=== PATIENT | female | born 1940 | race Caucasian/White ===

== ENCOUNTER 2018-07-25 11:27 | Emergency (ER) | payer MEDICARE, SELFPAY ==
[2018-07-25 11:43] VITALS: BP 134/96; PULSE 100; RESP 13; TEMP 36.4; O2SAT 98
[2018-07-25 11:57] LABS: Bacteria Urine None Seen
[2018-07-25 11:59] LABS: Appearance Urine UA CLEAR; Bilirubin Urine UA NEGATIVE (NEGATIVE); Color Urine UA YELLOW; Glucose Urine UA NEGATIVE (Normal); Ketones Urine UA NEGATIVE (NEGATIVE); Leukocyte Esterase Urine UA NEGATIVE (NEGATIVE); Nitrite Urine UA Negative (Negative); Occult Blood Urine UA NEGATIVE (Negative); Protein Urine UA NEGATIVE (Negative); Urobilinogen Urine UA 0.2 E.U./dL (0.2)
--- NOTE | 2018-07-25 12:10 | PC.NURSE ---
Patient reports four days of cipro, symptoms have improved some. no longer burning but reports urgency still with right flank pain. Patient has noticed the right flank pain for several weeks, UTI symptoms started wednesday.
[2018-07-25 12:15] LABS: Culture Indicated Urine Cult Not Indicated; RBC Urine 0-1/HPF (0-5/HPF); Squamous Epithelial Cell Urine 0-1 /HPF; WBC Urine 1-5/HPF (0-5/HPF)
--- NOTE | 2018-07-25 12:53 | DI.RAD.S_ITS ---
PROCEDURE: XR LUMBAR SPINE 2-3V INDICATIONS: low back pain TECHNIQUE: 3 views of the lumbar spine were acquired. COMPARISON: [facility], , L-SPINE 2-3 VIEWS, 07/01/2015, 18:09. FINDINGS: Bones: 5 [id number] vertebrae are present. There is stable appearing bony alignment, and the previously present L3-L5 with vertical fixation plates and transverse pedicle screws appear stable over time.. No vertebral body compression fractures. No suspicious bony lesions. Mild interval worsening of degenerative disc disease above and below the level of prior operative fusion. Soft tissues: Overlying bowel gas pattern is normal. No suspicious soft tissue calcifications. IMPRESSION: The degenerative disc disease at L2-L3 appears to have mildly worsened from the comparison study in June of 2015, and a similar mild degree of interval worsening of degenerative disc disease at L5-S1 has developed. The fixation plates and transverse pedicle screws remain stable in appearance without evidence of device loosening or disruption. Dictated by: Misha Field M.D. on 07/25/2018 at 14:00 Approved by: Misha Field M.D. on 07/25/2018 at 14:02
--- NOTE | 2018-07-25 12:55 | ED.FEMALEGU ---
HPI - Female Genitourinary <MICHI Diane - Last Filed: 07/25/18 15:52> General Chief complaint: Urogenital-Female Stated complaint: uti Time Seen by Provider: 07/25/18 12:37 Source: patient Mode of arrival: ambulatory Limitations: no limitations History of Present Illness HPI Narrative: Patient presents with chief complaint of UTI symptoms. She complains of urinary urgency frequency hematuria and dysuria that started on Wednesday. She self-medicated with a prescription of Cipro that she had on hand ?just in case.? She states that her UTI symptoms have improved. She complains of suprapubic pressure at the time but states that is much improved since she started taking her antibiotics. She denies any fevers, nausea, vomiting, diarrhea. She complains of right-sided back pain. She states she has a history of back problems and back surgeries. She wanted to make sure she was not developing a kidney infection. She denies any numbness, tingling, incontinence. She denies any vaginal symptoms. Related Data Home Medications Medication Instructions Recorded Confirmed losartan 50 mg PO BID #0 08/19/16 07/25/18 aspirin 81 mg PO QPM 07/25/18 07/25/18 atorvastatin 40 mg PO QPM 07/25/18 07/25/18 fluticasone 1 spray INTRANASAL PRN PRN 07/25/18 07/25/18 hydrochlorothiazide 25 mg PO DAILY 07/25/18 07/25/18 metoprolol tartrate 25 mg PO BID 07/25/18 07/25/18 trazodone 100 mg PO BEDTIME 07/25/18 07/25/18 zolpidem 5 mg PO BEDTIME PRN 07/25/18 07/25/18 Previous Rx's Medication Instructions Recorded naproxen 500 mg PO BID PRN #20 tab 07/25/18 Allergies Allergy/AdvReac Type Severity Reaction Status Date / Time Penicillins [PENICILLINS] Allergy Unknown Unverified 01/26/18 12:56 Review of Systems <MICHI Diane - Last Filed: 07/25/18 15:52> Review of Systems GENERAL: Denies chills, fatigue, malaise, fever, sweats. HEENT: Denies sinus pain, ear pain, sore throat, difficulty swallowing, dizziness. RESPIRATORY: Denies dyspnea, cough, wheezing, hemoptysis, sputum. CARDIOVASCULAR: Denies chest pain, palpitations, orthopnea, edema, GASTROINTESTINAL: Denies nausea, vomiting, abdominal pain, diarrhea, constipation, melena. : See HPI MUSCULOSKELETAL: See HPI SKIN: Denies rash, skin lesions, or other NEUROLOGIC: Denies weakness, headache, numbness, change in speech, confusion, seizures, incoordination. PSYCHIATRIC: No concerning psychosocial issues. 12 point review of systems is negative except for those stated above Exam <Kaykay Castro, PUBLIC HEALTH SPECIALIST-BC - Last Filed: 07/25/18 15:52> Narrative Exam Narrative: GENERAL: This is a well-nourished, well-developed patient, in no acute distress sitting on bed. HEAD: Atraumatic. Normocephalic. No temporal or scalp tenderness. EYES: Pupils equal round and reactive. Extraocular motions intact. No scleral icterus. No injection or drainage. ENT: Nose without bleeding, purulent drainage or septal hematoma. Throat without erythema, tonsillar hypertrophy or exudate. Uvula midline. Airway patent. NECK: Trachea midline. No JVD or lymphadenopathy. Supple, nontender, no meningeal signs. CARDIOVASCULAR: Regular rate and rhythm RESPIRATORY: Clear to auscultation. Breath sounds equal bilaterally. No wheezes, rales, or rhonchi. GASTROINTESTINAL: Abdomen soft, non-tender, nondistended. No hepato-splenomegaly, or palpable masses. No guarding. No suprapubic tenderness to palpation. Active bowel sounds all 4 quadrants. No CVA tenderness bilaterally. EXTREMITIES: No clubbing, cyanosis, or edema. No joint tenderness, effusion, or edema noted. Strength is equal upper and lower extremities bilaterally. BACK: No pain to C-spine or spinal palpation. Patient has pain upon palpation of her lower right paraspinal muscle no lumbar region. Steady gait. NEURO: AOx3. SKIN: No rash or erythema. No rash erythema ecchymosis noted lower back. Initial Vital Signs Initial Vital Signs: Vital Signs Temperature 97.6 F 07/25/18 11:43 Pulse Rate 100 H 07/25/18 11:43 Respiratory Rate 13 07/25/18 11:43 Blood Pressure 134/96 H 07/25/18 11:43 Pulse Oximetry 98 07/25/18 11:43 <DO Alok Bowles Last Filed: 07/26/18 08:03> Initial Vital Signs Initial Vital Signs: Vital Signs Temperature 97.6 F 07/25/18 11:43 Pulse Rate 100 H 07/25/18 11:43 Respiratory Rate 13 07/25/18 11:43 Blood Pressure 134/96 H 07/25/18 11:43 Pulse Oximetry 98 07/25/18 11:43 Course <MICHI Diane - Last Filed: 07/25/18 15:52> Additional Information: I checked on the patient several times throughout her stay in the emergency department. Orders Ordered: ED Orders 07/25/18 11:56 Urinalysis and Microscopic Stat 07/25/18 12:53 XR lumbar spine 2-3V Stat Vital Signs - 8 hr 07/25/18 11:43 07/25/18 12:56 07/25/18 14:42 Temperature 97.6 F Pulse Rate 100 H 105 H 104 H Respiratory Rate 13 18 Blood Pressure 134/96 H 122/82 Blood Pressure [Left Arm] 137/87 Pulse Oximetry 98 95 97 <Tamy Alonso DO - Last Filed: 07/26/18 08:03> Orders Ordered: ED Orders 07/25/18 11:56 Urinalysis and Microscopic Stat 07/25/18 12:53 XR lumbar spine 2-3V Stat Vital Signs - 8 hr 07/25/18 11:43 07/25/18 12:56 07/25/18 14:42 Temperature 97.6 F Pulse Rate 100 H 105 H 104 H Respiratory Rate 13 18 Blood Pressure 134/96 H 122/82 Blood Pressure [Left Arm] 137/87 Pulse Oximetry 98 95 97 MDM - Female Genitourinary <MICHI Diane - Last Filed: 07/25/18 15:52> Lab Data Lab Results 07/25/18 Range/Units 11:56 Urine Color Yellow Urine Appearance Clear Urine pH 7.0 (4.5-8.0) Ur Specific [place] 1.010 (1.000-1.035) Urine Protein Negative (Negative) Urine Glucose (UA) Negative (Normal) g/dL Urine Ketones Negative (NEGATIVE) Urine Occult Blood Negative (Negative) Urine Nitrate Negative (Negative) Urine Bilirubin Negative (NEGATIVE) Urine Urobilinogen 0.2 (0.2) E.U./dL Ur Leukocyte Esterase Negative (NEGATIVE) Urine RBC 0-1/hpf (0-5/HPF) Urine WBC 1-5/hpf (0-5/HPF) Ur Squamous Epith Cells 0-1 /hpf Urine Bacteria None seen (None) Ur Culture Indicated? Cult not indicated Micro UA Comment Not Reportable Imaging Data lumbar xray : Radiologist's impression: [address] [address] XRay Report Signed Patient: Corry Gatyan QMR#: [id number] : 1940Acct:[id number] Age/Sex: 77 / FDate of Service: 07/25/18 Loc: ED Accession Number: [id number] Procedure: XR lumbar spine 2-3V Ordering Provider: Kaykay Castro PUBLIC HEALTH SPECIALIST-BC PROCEDURE: XR LUMBAR SPINE 2-3V INDICATIONS: low back pain TECHNIQUE: 3 views of the lumbar spine were acquired. COMPARISON: [facility], , L-SPINE 2-3 VIEWS, 07/01/2015, 18:09. FINDINGS: Bones: 5 [id number] vertebrae are present. There is stable appearing bony alignment, and the previously present L3-L5 with vertical fixation plates and transverse pedicle screws appear stable over time.. No vertebral body compression fractures. No suspicious bony lesions. Mild interval worsening of degenerative disc disease above and below the level of prior operative fusion. Soft tissues: Overlying bowel gas pattern is normal. No suspicious soft tissue calcifications. IMPRESSION: The degenerative disc disease at L2-L3 appears to have mildly worsened from the comparison study in June of 2015, and a similar mild degree of interval worsening of degenerative disc disease at L5-S1 has developed. The fixation plates and transverse pedicle screws remain stable in appearance without evidence of device loosening or disruption. Dictated by: Misha Field M.D. on 07/25/2018 at 14:00 Approved by: Misha Field M.D. on 07/25/2018 at 14:02 [facility] Narrative Medical decision making narrative: Patient presents with chief complaint of UTI symptoms and back pain. She has been treating herself with Cipro and states her UTI symptoms are much improved. She does not have any signs of infection on urinalysis. She plans on finishing her Cipro. She wanted to make sure that she was not having a kidney infection given her back pain. However her back pain is not in her CVA area. She has no signs of systemic symptoms as well as stable vital signs and no evidence of fever. We discussed conservative measures for the time being given her back pain and she plans upon up with primary care provider for worsening or no improvement. I discussed at length return precautions the emergency department and she had no questions or concerns upon discharge. <Tamy Alonso, DO - Last Filed: 07/26/18 08:03> Lab Data Lab Results 07/25/18 Range/Units 11:56 Urine Color Yellow Urine Appearance Clear Urine pH 7.0 (4.5-8.0) Ur Specific [place] 1.010 (1.000-1.035) Urine Protein Negative (Negative) Urine Glucose (UA) Negative (Normal) g/dL Urine Ketones Negative (NEGATIVE) Urine Occult Blood Negative (Negative) Urine Nitrate Negative (Negative) Urine Bilirubin Negative (NEGATIVE) Urine Urobilinogen 0.2 (0.2) E.U./dL Ur Leukocyte Esterase Negative (NEGATIVE) Urine RBC 0-1/hpf (0-5/HPF) Urine WBC 1-5/hpf (0-5/HPF) Ur Squamous Epith Cells 0-1 /hpf Urine Bacteria None seen (None) Ur Culture Indicated? Cult not indicated Micro UA Comment Not Reportable Discharge Plan Departure Patient Disposition: Home Clinical Impression: Back pain, Dysuria Discharge Date/Time: 07/25/18 14:43 Interventions: ED Discharge Assessment Last Done: 07/25/18 14:42 Instructions: Back Pain (Alternative Therapy), Low Back Pain, DI for Low Back Pain, DI for Urinary Tract Infection (UTI) Activity Restrictions/Additional Instructions: I have printed out a copy of your x-ray results for you to see. I have given you a prescription of naproxen to take twice a day for the pain. Please do not combine it with any other NSAIDs such as ibuprofen. Your urine sample came back negative for any signs of infection here in the emergency department. Please follow-up with primary care provider as discussed. Please come back to emergency department for any acute concerns such as stroke, heart attack or neurological changes. Prescriptions: New naproxen 500 mg tablet 500 mg PO BID PRN (Reason: pain) Qty: 20 RF: 0 No Action losartan 50 MG tablet 50 mg PO BID Qty: 0 RF: 0 atorvastatin 80 mg tablet 40 mg PO QPM RF: 0 trazodone 100 mg tablet 100 mg PO BEDTIME RF: 0 hydrochlorothiazide 25 mg tablet 25 mg PO DAILY RF: 0 zolpidem 10 mg tablet 5 mg PO BEDTIME PRN (Reason: Sleep) RF: 0 fluticasone 50 mcg/actuation spray,suspension 1 spray Intranasal PRN PRN (Reason: Allergy Symptoms) RF: 0 metoprolol tartrate 25 mg tablet 25 mg PO BID RF: 0 aspirin 81 MG tablet,delayed release (DR/EC) 81 mg PO QPM RF: 0 Referrals: Becky Webb DO [Primary Care Provider] - <Tamy Alonso DO - Last Filed: 07/26/18 08:03> Cosign ED Attending Francy Attestation: I was immediately available in the department for consultation. Documentation has been reviewed. I agree with assessment and plan.
[2018-07-25 12:56] VITALS: BP 137/87; PULSE 105; O2SAT 95
--- NOTE | 2018-07-25 12:58 | ED_ITS ---
HPI - Female Genitourinary <MICHI Diane - Last Filed: 07/25/18 15:52> General Chief complaint: Urogenital-Female Stated complaint: uti Time Seen by Provider: 07/25/18 12:37 Source: patient Mode of arrival: ambulatory Limitations: no limitations History of Present Illness HPI Narrative: Patient presents with chief complaint of UTI symptoms. She complains of urinary urgency frequency hematuria and dysuria that started on Wednesday. She self-medicated with a prescription of Cipro that she had on hand ? just in case.? She states that her UTI symptoms have improved. She complains of suprapubic pressure at the time but states that is much improved since she started taking her antibiotics. She denies any fevers, nausea, vomiting, diarrhea. She complains of right-sided back pain. She states she has a history of back problems and back surgeries. She wanted to make sure she was not developing a kidney infection. She denies any numbness, tingling, incontinence. She denies any vaginal symptoms. Related Data Home Medications Medication Instructions Recorded Confirmed losartan 50 mg PO BID #0 08/19/16 07/25/18 aspirin 81 mg PO QPM 07/25/18 07/25/18 atorvastatin 40 mg PO QPM 07/25/18 07/25/18 fluticasone 1 spray INTRANASAL PRN PRN 07/25/18 07/25/18 hydrochlorothiazide 25 mg PO DAILY 07/25/18 07/25/18 metoprolol tartrate 25 mg PO BID 07/25/18 07/25/18 trazodone 100 mg PO BEDTIME 07/25/18 07/25/18 zolpidem 5 mg PO BEDTIME PRN 07/25/18 07/25/18 Previous Rx's Medication Instructions Recorded naproxen 500 mg PO BID PRN #20 tab 07/25/18 Allergies Allergy/AdvReac Type Severity Reaction Status Date / Time Penicillins [PENICILLINS] Allergy Unknown Unverified 01/26/18 12:56 Review of Systems <MICHI Diane - Last Filed: 07/25/18 15:52> Review of Systems GENERAL: Denies chills, fatigue, malaise, fever, sweats. HEENT: Denies sinus pain, ear pain, sore throat, difficulty swallowing, dizziness. RESPIRATORY: Denies dyspnea, cough, wheezing, hemoptysis, sputum. CARDIOVASCULAR: Denies chest pain, palpitations, orthopnea, edema, GASTROINTESTINAL: Denies nausea, vomiting, abdominal pain, diarrhea, constipation, melena. : See HPI MUSCULOSKELETAL: See HPI SKIN: Denies rash, skin lesions, or other NEUROLOGIC: Denies weakness, headache, numbness, change in speech, confusion, seizures, incoordination. PSYCHIATRIC: No concerning psychosocial issues. 12 point review of systems is negative except for those stated above Exam <Kaykay Castro, SUPERVISOR BUILDING MAINTENANCE-BC - Last Filed: 07/25/18 15:52> Narrative Exam Narrative: GENERAL: This is a well-nourished, well-developed patient, in no acute distress sitting on bed. HEAD: Atraumatic. Normocephalic. No temporal or scalp tenderness. EYES: Pupils equal round and reactive. Extraocular motions intact. No scleral icterus. No injection or drainage. ENT: Nose without bleeding, purulent drainage or septal hematoma. Throat without erythema, tonsillar hypertrophy or exudate. Uvula midline. Airway patent. NECK: Trachea midline. No JVD or lymphadenopathy. Supple, nontender, no meningeal signs. CARDIOVASCULAR: Regular rate and rhythm RESPIRATORY: Clear to auscultation. Breath sounds equal bilaterally. No wheezes , rales, or rhonchi. GASTROINTESTINAL: Abdomen soft, non-tender, nondistended. No hepato-splenomegaly , or palpable masses. No guarding. No suprapubic tenderness to palpation. Active bowel sounds all 4 quadrants. No CVA tenderness bilaterally. EXTREMITIES: No clubbing, cyanosis, or edema. No joint tenderness, effusion, or edema noted. Strength is equal upper and lower extremities bilaterally. BACK: No pain to C-spine or spinal palpation. Patient has pain upon palpation of her lower right paraspinal muscle no lumbar region. Steady gait. NEURO: AOx3. SKIN: No rash or erythema. No rash erythema ecchymosis noted lower back. Initial Vital Signs Initial Vital Signs: Vital Signs Temperature 97.6 F 07/25/18 11:43 Pulse Rate 100 H 07/25/18 11:43 Respiratory Rate 13 07/25/18 11:43 Blood Pressure 134/96 H 07/25/18 11:43 Pulse Oximetry 98 07/25/18 11:43 <DO Alok Bowles Last Filed: 07/26/18 08:03> Initial Vital Signs Initial Vital Signs: Vital Signs Temperature 97.6 F 07/25/18 11:43 Pulse Rate 100 H 07/25/18 11:43 Respiratory Rate 13 07/25/18 11:43 Blood Pressure 134/96 H 07/25/18 11:43 Pulse Oximetry 98 07/25/18 11:43 Course <MICHI Diane - Last Filed: 07/25/18 15:52> Additional Information: I checked on the patient several times throughout her stay in the emergency department. Orders Ordered: ED Orders 07/25/18 11:56 Urinalysis and Microscopic Stat 07/25/18 12:53 XR lumbar spine 2-3V Stat Vital Signs - 8 hr 07/25/18 11:43 07/25/18 12:56 07/25/18 14:42 Temperature 97.6 F Pulse Rate 100 H 105 H 104 H Respiratory Rate 13 18 Blood Pressure 134/96 H 122/82 Blood Pressure [Left Arm] 137/87 Pulse Oximetry 98 95 97 <Tamy Alonso DO - Last Filed: 07/26/18 08:03> Orders Ordered: ED Orders 07/25/18 11:56 Urinalysis and Microscopic Stat 07/25/18 12:53 XR lumbar spine 2-3V Stat Vital Signs - 8 hr 07/25/18 11:43 07/25/18 12:56 07/25/18 14:42 Temperature 97.6 F Pulse Rate 100 H 105 H 104 H Respiratory Rate 13 18 Blood Pressure 134/96 H 122/82 Blood Pressure [Left Arm] 137/87 Pulse Oximetry 98 95 97 MDM - Female Genitourinary <MCIHI Diane - Last Filed: 07/25/18 15:52> Lab Data Lab Results 07/25/18 Range/Units 11:56 Urine Color Yellow Urine Appearance Clear Urine pH 7.0 (4.5-8.0) Ur Specific [place] 1.010 (1.000-1.035) Urine Protein Negative (Negative) Urine Glucose (UA) Negative (Normal) g/dL Urine Ketones Negative (NEGATIVE) Urine Occult Blood Negative (Negative) Urine Nitrate Negative (Negative) Urine Bilirubin Negative (NEGATIVE) Urine Urobilinogen 0.2 (0.2) E.U./dL Ur Leukocyte Esterase Negative (NEGATIVE) Urine RBC 0-1/hpf (0-5/HPF) Urine WBC 1-5/hpf (0-5/HPF) Ur Squamous Epith Cells 0-1 /hpf Urine Bacteria None seen (None) Ur Culture Indicated? Cult not indicated Micro UA Comment Not Reportable Imaging Data lumbar xray : Radiologist's impression: [address] [address] XRay Report Signed Patient: Corry Gaytan QMR#: [id number] : 1940Acct:[id number] Age/Sex: 77 / FDate of Service: 07/25/18 Loc: ED Accession Number: [id number] Procedure: XR lumbar spine 2-3V Ordering Provider: Kaykay Castro SUPERVISOR BUILDING MAINTENANCE-BC PROCEDURE: XR LUMBAR SPINE 2-3V INDICATIONS: low back pain TECHNIQUE: 3 views of the lumbar spine were acquired. COMPARISON: [facility], , L-SPINE 2-3 VIEWS, 07/01/2015, 18:09. FINDINGS: Bones: 5 [id number] vertebrae are present. There is stable appearing bony alignment, and the previously present L3-L5 with vertical fixation plates and transverse pedicle screws appear stable over time.. No vertebral body compression fractures. No suspicious bony lesions. Mild interval worsening of degenerative disc disease above and below the level of prior operative fusion. Soft tissues: Overlying bowel gas pattern is normal. No suspicious soft tissue calcifications. IMPRESSION: The degenerative disc disease at L2-L3 appears to have mildly worsened from the comparison study in June of 2015, and a similar mild degree of interval worsening of degenerative disc disease at L5-S1 has developed. The fixation plates and transverse pedicle screws remain stable in appearance without evidence of device loosening or disruption. Dictated by: Misha Field M.D. on 07/25/2018 at 14:00 Approved by: Misha Field M.D. on 07/25/2018 at 14:02 [facility] Narrative Medical decision making narrative: Patient presents with chief complaint of UTI symptoms and back pain. She has been treating herself with Cipro and states her UTI symptoms are much improved. She does not have any signs of infection on urinalysis. She plans on finishing her Cipro. She wanted to make sure that she was not having a kidney infection given her back pain. However her back pain is not in her CVA area. She has no signs of systemic symptoms as well as stable vital signs and no evidence of fever. We discussed conservative measures for the time being given her back pain and she plans upon up with primary care provider for worsening or no improvement. I discussed at length return precautions the emergency department and she had no questions or concerns upon discharge. <Tamy Alonso, DO - Last Filed: 07/26/18 08:03> Lab Data Lab Results 07/25/18 Range/Units 11:56 Urine Color Yellow Urine Appearance Clear Urine pH 7.0 (4.5-8.0) Ur Specific [place] 1.010 (1.000-1.035) Urine Protein Negative (Negative) Urine Glucose (UA) Negative (Normal) g/dL Urine Ketones Negative (NEGATIVE) Urine Occult Blood Negative (Negative) Urine Nitrate Negative (Negative) Urine Bilirubin Negative (NEGATIVE) Urine Urobilinogen 0.2 (0.2) E.U./dL Ur Leukocyte Esterase Negative (NEGATIVE) Urine RBC 0-1/hpf (0-5/HPF) Urine WBC 1-5/hpf (0-5/HPF) Ur Squamous Epith Cells 0-1 /hpf Urine Bacteria None seen (None) Ur Culture Indicated? Cult not indicated Micro UA Comment Not Reportable Discharge Plan Departure Patient Disposition: Home Clinical Impression: Back pain, Dysuria Discharge Date/Time: 07/25/18 14:43 Interventions: ED Discharge Assessment Last Done: 07/25/18 14:42 Instructions: Back Pain (Alternative Therapy), Low Back Pain, DI for Low Back Pain, DI for Urinary Tract Infection (UTI) Activity Restrictions/Additional Instructions: I have printed out a copy of your x-ray results for you to see. I have given you a prescription of naproxen to take twice a day for the pain. Please do not combine it with any other NSAIDs such as ibuprofen. Your urine sample came back negative for any signs of infection here in the emergency department. Please follow-up with primary care provider as discussed. Please come back to emergency department for any acute concerns such as stroke, heart attack or neurological changes. Prescriptions: New naproxen 500 mg tablet 500 mg PO BID PRN (Reason: pain) Qty: 20 RF: 0 No Action losartan 50 MG tablet 50 mg PO BID Qty: 0 RF: 0 atorvastatin 80 mg tablet 40 mg PO QPM RF: 0 trazodone 100 mg tablet 100 mg PO BEDTIME RF: 0 hydrochlorothiazide 25 mg tablet 25 mg PO DAILY RF: 0 zolpidem 10 mg tablet 5 mg PO BEDTIME PRN (Reason: Sleep) RF: 0 fluticasone 50 mcg/actuation spray,suspension 1 spray Intranasal PRN PRN (Reason: Allergy Symptoms) RF: 0 metoprolol tartrate 25 mg tablet 25 mg PO BID RF: 0 aspirin 81 MG tablet,delayed release (DR/EC) 81 mg PO QPM RF: 0 Referrals: Becky Webb DO [Primary Care Provider] - <Tamy Alonso DO - Last Filed: 07/26/18 08:03> Cosign ED Attending Francy Attestation: I was immediately available in the department for consultation. Documentation has been reviewed. I agree with assessment and plan.
[2018-07-25 14:42] VITALS: BP 122/82; PULSE 104; RESP 18; O2SAT 97
--- NOTE | 2018-07-28 16:23 | PC.NURSE ---
follow up with call, n/a
== END 2018-07-25 14:43 | disposition home or self-care (01) ==
PROVIDERS: Emergency Provider Nurse Practitioner Family; Family Provider Internal Medicine; PCP Internal Medicine
DX: M54.9 Dorsalgia, unspecified (principal); R30.0 Dysuria
CPT/HCPCS: 72100; 81001; 99282; 99284

== ENCOUNTER → 2019-11-09 14:09 | Outpatient (CLI) | payer MEDICARE, SELFPAY | PROVIDERS: Family Provider Internal Medicine; PCP Internal Medicine; Visit Provider Physician Assistant | DX: N30.00 Acute cystitis without hematuria (principal) | CPT/HCPCS: 87077; 87086; 87186 ==

== ENCOUNTER → 2023-01-11 09:14 | Outpatient (CLI) | payer MEDICARE, SELFPAY ==
--- NOTE | 2023-01-11 09:19 | DI.RAD.S_ITS ---
PROCEDURE: XR LUMBAR SPINE MIN 4V INDICATIONS: BACK PAIN TECHNIQUE: 5 views of the lumbar spine acquired, including flexion and extension views. COMPARISON: [facility], , XR LUMBAR SPINE 2-3V, 07/25/2018, 13:14. FINDINGS: Bones: 5 nonrib-bearing vertebrae are present. Mild levo curvature centered at the L2-L3 level. Posterior fixation hardware at the L3-L4 and L4-L5 levels which appears similar prior examination. Multilevel disc height loss with endplate sclerosis and spurring, severe at the L2-L3 and L5-S1 levels. Lower lumbar spine facet joint arthropathy.. No vertebral body compression fractures. No suspicious bony lesions. Soft tissues: Overlying bowel gas pattern is normal. No suspicious soft tissue calcifications. Vascular calcifications indicate atherosclerosis. IMPRESSION: 1. Posterior fixation hardware again seen at the L3-L4 and L4-L5 levels. 2. Multilevel lumbar spine spondylosis similar prior examination dated 07/25/2018. Dictated by: Devyn LIM Interpreted: Bebo Thompson MD on 01/11/2023 at 9:54 Transcribed by: JOSÉ on 01/11/2023 at 9:56 Approved by: Damian Thompson M.D. on 01/11/2023 at 12:37
== END ==
PROVIDERS: Family Provider Internal Medicine; PCP Internal Medicine; Referring Provider Physical Medicine & Rehabilitation; Visit Provider Physical Medicine & Rehabilitation
DX: M47.816 Spondylosis without myelopathy or radiculopathy, lumbar region (principal); M48.062 Spinal stenosis, lumbar region with neurogenic claudication; M54.9 Dorsalgia, unspecified; G25.81 Restless legs syndrome; Z95.0 Presence of cardiac pacemaker; Z98.1 Arthrodesis status; Z98.890 Other specified postprocedural states
CPT/HCPCS: 72110; 99214

== ENCOUNTER 2023-05-18 09:56 | Outpatient (CLI) | payer MEDICARE, SELFPAY ==
[2023-05-18] VITALS (7 sets, daily range): BP systolic 106–160; BP diastolic 60–74; PULSE 60–82; RESP 18–26; TEMP 36.4; O2SAT 91–100
--- NOTE | 2023-05-18 09:58 | DI.RAD.S_ITS ---
PROCEDURE: PAIN L INTERLAMINAR/CAUDAL INJ INDICATIONS: SPONDYLOSIS COMPARISON: [facility], [place]ONY, XR LUMBAR SPINE MIN 4V, 01/11/2023, 9:29. [place], RG, CT LUMBAR SPINE, 11/12/2020, 11:16. FINDINGS: Fluoroscopic spot filming was performed to verify placement of a spinal needle at the L2-L3 level, as labeled on the films. Appropriate location of the needle tip was confirmed by injection of iodinated contrast. IMPRESSION: Intraprocedural examination within normal limits. Dictated by: Jimi Cannon M.D. on 05/18/2023 at 10:28 Approved by: Jimi Cannon M.D. on 05/18/2023 at 10:28
[2023-05-18] MEDS: MIDAZOLAM 2 MG/2 ML VIAL IV (10:45)
[2023-05-18] MEDS: IOPAMIDOL 15 ML VIAL 3 ML INJ (10:50)
[2023-05-18] MEDS: BETAMETHASONE 30 MG/5 ML MDV 6 MG INJ (10:51)
[2023-05-18] MEDS: DEXAMETHASONE 10 MG/ML VIAL INJ (10:51)
--- NOTE | 2023-05-18 11:04 | PM.PROC.IR.1 ---
Date/Time/Diagnoses Date of procedure: 05/18/23 Time of procedure: 11:04 Pre-procedure diagnosis: 1. HNP WITH RADICULAR FEATURES, 2. MULTILEVEL CENTRAL STENOSIS, Post-procedure diagnosis: same Procedure Notes Procedure: 1. FLUOROSCOPICALLY GUIDED CONTRAST CONTROLLED INTERLAMINAR EPIDURAL STEROID INJECTION - L2/3 Indications: Corry is referred by Dr. Martinez for treatment of Bilateral Foraminal Stenosis L>R LE symptoms. Physician: Nando Deras Total Fluoroscopy time (seconds): 11 Total sedation minutes: 13 Complications: none Procedure in detail & Post-procedure care: FINDINGS Multilevel Central Spinal Stenosis with Nerve Root Compression DESCRIPTION OF PROCEDURE Fluoroscopically guided, contrast-controlled L2/3 translaminar epidural steroid injection. Following review of allergy and review of potential side effects and complications, including, but not necessarily limited to, infection, allergic reaction, local tissue breakdown, temporary as well as permanent nerve injury, paralysis, stroke and possible , the patient indicated that the patient understood and agreed to proceed. An informed consent document was signed by the patient, witnessed by a nurse, and placed in the patient's chart. Additionally, other treatment options including modalities, medications, and physical therapy were reviewed with the patient. After review of previous anaesthesic history and IV conscious sedation the patient was deemed safe to proceed with today?s procedure with IV conscious sedation as ASA class II designation. Safety time-out was performed to confirm patient ID, procedure to be performed and site of procedure. IV sedation was accomplished with a combination administered by the RN after DO order, titrated to patient comfort during the course of the procedure while the patient remained responsive to all verbal commands. In the prone position, following sterile prep and drape of the lumbar region,the L2/3 translaminar space was identified fluoroscopically. The skin was anesthetized via a 25-gauge, 1.5-inch needle with 1% lidocaine solution. At this point, a 22-gauge short bevel spinal needle was atraumatically introduced and advanced under fluoroscopic guidance into the region of the L2/3 translaminar space. Depth was confirmed on lateral view. Radiological data, including multiple fluoroscopic views of the lumbar spine, reveal a spinal needle at the L2/3 translaminar space. Lateral views then show placement of the needle in the epidural space. Subsequent views show contrast material flowing superiorly and inferiorly in the epidural space. No vascular or intrathecal uptake is observed. At this point, using loss of resistance technique with saline and air, the epidural space was entered. This was confirmed following negative aspiration with injection of approximately 1.5 cc of Isovue 200, showing excellent epidural flow without vascular or intrathecal uptake. At this point, 1 cc of 1% lidocaine solution combined with 3cc or 20mg of dexamethasone and 6mg of betamethasone was injected without incident. The patient tolerated the procedure well without signs or symptoms of complications prior to transfer to the recovery area continued monitoring without incident. The patient was then transferred to the recovery area where they were observed for an appropriate period of time after the injection. The patient reported a VAS score of 6 prior to the procedure and a post-procedure VAS of 0. POST OP INSTRUCTIONS The patient was provided a Pain Log to continue to record their response to the target-specific procedure prior to follow-up visit with their referring physician. Additionally, specific post-injection care instructions and a contact number to our office were provided if concerns arise regarding possible complications associated with the procedure are suspected.
== END 2023-05-18 11:19 | disposition home or self-care (01) ==
PROVIDERS: Family Provider Internal Medicine; PCP Internal Medicine; Referring Provider Physical Medicine & Rehabilitation; Visit Provider Physical Medicine & Rehabilitation
DX: M51.16 Intervertebral disc disorders with radiculopathy, lumbar region (principal); M48.061 Spinal stenosis, lumbar region without neurogenic claudication
CPT/HCPCS: 62323; 99152; J0702; J1100; J2250

== ENCOUNTER → 2023-05-26 11:39 | Outpatient (CLI) | payer MEDICARE, SELFPAY ==
--- NOTE | 2023-05-26 11:41 | DI.RAD.S_ITS ---
PROCEDURE: XR FOOT RT MIN 3V INDICATIONS: Foot pain TECHNIQUE: 3 views of the foot were acquired. COMPARISON: None. FINDINGS: Bones: Question 5th metatarsal head fracture versus artifact No dislocations. No suspicious bony lesions. Calcaneal spurring. Soft tissues: No tibiotalar joint effusion. Achilles tendon appears normal. IMPRESSION: 1. Question 5th metatarsal head fracture versus artifact. Recommend correlation with focal pain and tenderness. A repeat examination is suggested in 7-10 days is if clinical symptoms persist. Dictated by: Gwyn Swan M.D. on 05/26/2023 at 14:42 Approved by: Gwyn Swan M.D. on 05/26/2023 at 14:46
== END ==
PROVIDERS: Family Provider Internal Medicine; PCP Internal Medicine; Referring Provider Nurse Practitioner Family; Visit Provider Nurse Practitioner Family
DX: M79.671 Pain in right foot (principal)
CPT/HCPCS: 73630

== ENCOUNTER 2024-02-01 13:06 | Outpatient (CLI) | payer MEDICARE, SELFPAY ==
[2024-02-01] VITALS (8 sets, daily range): BP systolic 106–158; BP diastolic 59–93; PULSE 61–98; RESP 15–22; TEMP 36.1; O2SAT 93–99
--- NOTE | 2024-02-01 14:00 | DI.RAD.S_ITS ---
PROCEDURE: PAIN L INTERLAMINAR/CAUDAL INJ INDICATIONS: STENOSIS COMPARISON: [facility], XA, PAIN L INTERLAMINAR/CAUDAL INJ, 05/18/2023, 10:50. FINDINGS: Fluoroscopic spot filming was performed to verify placement of spinal needles at the L2-L3 level(s), as labeled on the films. Appropriate location(s) of the needle tip(s) was confirmed by injection of iodinated contrast. IMPRESSION: Intraoperative guidance provided. Dictated by: Sammy Robbins M.D. on 02/01/2024 at 22:03 Approved by: Sammy Robbins M.D. on 02/01/2024 at 22:04
--- NOTE | 2024-02-01 14:09 | PC.NURSE ---
Patient reports taking celebrex this AM at 0700. She reports not knowing she was supposed to hold any medications. Dr. Deras made aware.
[2024-02-01] MEDS: MIDAZOLAM 2 MG/2 ML VIAL IV (14:39)
[2024-02-01] MEDS: iopamidoL 15 ML VIAL 3 ML INJ (14:43)
[2024-02-01] MEDS: BETAMETHASONE 30 MG/5 ML MDV 6 MG INJ (14:44)
[2024-02-01] MEDS: DEXAMETHASONE 10 MG/ML VIAL INJ (14:44)
[2024-02-01] MEDS: BUPIVACAINE 0.25% (PF) VIAL 2 ML INJ (14:44)
--- NOTE | 2024-02-01 14:58 | PM.PROC.IR.1 ---
Date/Time/Diagnoses Date of procedure: 02/01/24 Time of procedure: 14:58 Pre-procedure diagnosis: 1. HNP WITH RADICULAR FEATURES, 2. MULTILEVEL CENTRAL STENOSIS, Post-procedure diagnosis: same Procedure Notes Procedure: 1. FLUOROSCOPICALLY GUIDED CONTRAST CONTROLLED INTERLAMINAR EPIDURAL STEROID INJECTION - L2/3 Indications: Corry is referred by Dr. Martinez for treatment of Bilateral Foraminal Stenosis L>R LE symptoms. Physician: Nando Deras Total Fluoroscopy time (seconds): 12 Total sedation minutes: 15 Complications: none Procedure in detail & Post-procedure care: FINDINGS Multilevel Central Spinal Stenosis with Nerve Root Compression DESCRIPTION OF PROCEDURE Fluoroscopically guided, contrast-controlled L2/3 translaminar epidural steroid injection. Following review of allergy and review of potential side effects and complications, including, but not necessarily limited to, infection, allergic reaction, local tissue breakdown, temporary as well as permanent nerve injury, paralysis, stroke and possible , the patient indicated that the patient understood and agreed to proceed. An informed consent document was signed by the patient, witnessed by a nurse, and placed in the patient's chart. Additionally, other treatment options including modalities, medications, and physical therapy were reviewed with the patient. After review of previous anaesthesic history and IV conscious sedation the patient was deemed safe to proceed with today?s procedure with IV conscious sedation as ASA class II designation. Safety time-out was performed to confirm patient ID, procedure to be performed and site of procedure. IV sedation was accomplished with a combination of 2mg Versed administered by the RN after DO order, titrated to patient comfort during the course of the procedure while the patient remained responsive to all verbal commands. In the prone position, following sterile prep and drape of the lumbar region,the L2/3 translaminar space was identified fluoroscopically. The skin was anesthetized via a 25-gauge, 1.5-inch needle with 1% lidocaine solution. At this point, a 22-gauge short bevel spinal needle was atraumatically introduced and advanced under fluoroscopic guidance into the region of the L2/3 translaminar space. Depth was confirmed on lateral view. Radiological data, including multiple fluoroscopic views of the lumbar spine, reveal a spinal needle at the L2/3 translaminar space. Lateral views then show placement of the needle in the epidural space. Subsequent views show contrast material flowing superiorly and inferiorly in the epidural space. No vascular or intrathecal uptake is observed. At this point, using loss of resistance technique with saline and air, the epidural space was entered. This was confirmed following negative aspiration with injection of approximately 1.5 cc of Isovue 200, showing excellent epidural flow without vascular or intrathecal uptake. At this point, 1 cc of 1% lidocaine solution combined with 2cc or 10mg of dexamethasone and 6mg of betamethasone was injected without incident. The patient tolerated the procedure well without signs or symptoms of complications prior to transfer to the recovery area continued monitoring without incident. The patient was then transferred to the recovery area where they were observed for an appropriate period of time after the injection. The patient reported a VAS score of 6 prior to the procedure and a post-procedure VAS of 0. POST OP INSTRUCTIONS The patient was provided a Pain Log to continue to record their response to the target-specific procedure prior to follow-up visit with their referring physician. Additionally, specific post-injection care instructions and a contact number to our office were provided if concerns arise regarding possible complications associated with the procedure are suspected.
== END 2024-02-01 15:10 | disposition home or self-care (01) ==
PROVIDERS: Family Provider Internal Medicine; PCP Internal Medicine; Referring Provider Physical Medicine & Rehabilitation; Visit Provider Physical Medicine & Rehabilitation
DX: M51.16 Intervertebral disc disorders with radiculopathy, lumbar region (principal); M48.061 Spinal stenosis, lumbar region without neurogenic claudication
CPT/HCPCS: 62323; 99152; J0702; J1100; J2250; J3490

== ENCOUNTER → 2024-08-14 14:33 | Outpatient (CLI) | payer MEDICARE, SELFPAY ==
--- NOTE | 2024-08-14 14:35 | DI.RAD.S_ITS ---
PROCEDURE: XR KNEE LT 3V INDICATIONS: djd TECHNIQUE: 3 views of the knee were acquired. COMPARISON: None. FINDINGS: Bones: No fractures or dislocations. No suspicious bony lesions. Moderate tricompartmental joint space narrowing and periarticular formation. Chondrocalcinosis. Soft tissues: Small joint effusion. No suspicious soft tissue calcifications. IMPRESSION: Moderate tricompartmental osteoarthrosis. Chondrocalcinosis. Small joint effusion. Approved by: Janet Iverson M.D.,Ph.D. on 08/15/2024 at 1:19
== END ==
PROVIDERS: Family Provider Internal Medicine; PCP Internal Medicine; Referring Provider Physical Medicine & Rehabilitation; Visit Provider Physical Medicine & Rehabilitation
DX: M17.12 Unilateral primary osteoarthritis, left knee (principal); M11.262 Other chondrocalcinosis, left knee; M25.462 Effusion, left knee; M48.062 Spinal stenosis, lumbar region with neurogenic claudication; M19.041 Primary osteoarthritis, right hand; M19.042 Primary osteoarthritis, left hand; M75.41 Impingement syndrome of right shoulder; M19.011 Primary osteoarthritis, right shoulder; Z98.890 Other specified postprocedural states; Z95.0 Presence of cardiac pacemaker
CPT/HCPCS: 73562; 99214

== ENCOUNTER 2024-08-31 13:54 | Outpatient (CLI) | payer MEDICARE, SELFPAY ==
[2024-08-31] VITALS (10 sets, daily range): BP systolic 110–156; BP diastolic 60–95; PULSE 60–88; RESP 12–22; TEMP 36.9; O2SAT 95–100
--- NOTE | 2024-08-31 14:42 | DI.RAD.S_ITS ---
PROCEDURE: PAIN L INTERLAMINAR/CAUDAL INJ INDICATIONS: para left L5-S1 translaminar MAJO COMPARISON: [facility], , PAIN L INTERLAMINAR/CAUDAL INJ, 02/01/2024, 14:43. FINDINGS: Fluoroscopic spot filming was performed to verify placement of spinal needles at the L5-S1 level(s), as labeled on the films. Appropriate location(s) of the needle tip(s) was confirmed by injection of iodinated contrast. IMPRESSION: Intraoperative fluoroscopy for epidural steroid injection. Dictated by: Willow Monique M.D. on 09/01/2024 at 0:11 Approved by: Willow Monique M.D. on 09/01/2024 at 0:12
[2024-08-31] MEDS: MIDAZOLAM 2 MG/2 ML VIAL IV (15:26)
[2024-08-31] MEDS: DEXAMETHASONE 10 MG/ML VIAL INJ (15:29)
[2024-08-31] MEDS: iopamidoL 15 ML VIAL 3 ML INJ (15:30)
[2024-08-31] MEDS: BUPIVACAINE 0.25% (PF) VIAL 2 ML INJ (15:30)
[2024-08-31] MEDS: BETAMETHASONE 30 MG/5 ML MDV 12 MG INJ (15:30)
--- NOTE | 2024-08-31 15:41 | P.PCN_ITS ---
Date/Time/Diagnoses Date of procedure: 08/31/24 Time of procedure: 15:42 Pre-procedure diagnosis: 1. HNP WITH RADICULAR FEATURES, 2. MULTILEVEL CENTRAL STENOSIS, Post-procedure diagnosis: same Procedure Notes Procedure: 1. FLUOROSCOPICALLY GUIDED CONTRAST CONTROLLED INTERLAMINAR EPIDURAL STEROID INJECTION - L5/S1 Indications: Corry is referred by Dr. Martinez for treatment of Bilateral Foraminal Stenosis L>R LE symptoms. Physician: Nando Deras Total Fluoroscopy time (seconds): 8 Total sedation minutes: 12 Complications: none Procedure in detail & Post-procedure care: FINDINGS Multilevel Central Spinal Stenosis with Nerve Root Compression DESCRIPTION OF PROCEDURE Fluoroscopically guided, contrast-controlled L5/S1 translaminar epidural steroid injection. Following review of allergy and review of potential side effects and complications, including, but not necessarily limited to, infection, allergic reaction, local tissue breakdown, temporary as well as permanent nerve injury, paralysis, stroke and possible , the patient indicated that the patient understood and agreed to proceed. An informed consent document was signed by the patient, witnessed by a nurse, and placed in the patient's chart. Additionally, other treatment options including modalities, medications, and physical therapy were reviewed with the patient. After review of previous anaesthesic history and IV conscious sedation the patient was deemed safe to proceed with today?s procedure with IV conscious sedation as ASA class II designation. Safety time-out was performed to confirm patient ID, procedure to be performed and site of procedure. IV sedation was accomplished with a combination of 2mg of Versed administered by the RN after DO order, titrated to patient comfort during the course of the procedure while the patient remained responsive to all verbal commands. In the prone position, following sterile prep and drape of the lumbar region, the L5/S1 translaminar space was identified fluoroscopically. The skin was anesthetized via a 25-gauge, 1.5-inch needle with 1% lidocaine solution. At this point, a 22-gauge short bevel spinal needle was atraumatically introduced and advanced under fluoroscopic guidance into the region of the L5/S1 translaminar space. Depth was confirmed on lateral view. Radiological data, including multiple fluoroscopic views of the lumbar spine, reveal a spinal needle at the L5/S1 translaminar space. Lateral views then show placement of the needle in the epidural space. Subsequent views show contrast material flowing superiorly and inferiorly in the epidural space. No vascular or intrathecal uptake is observed. At this point, using loss of resistance technique with saline and air, the epidural space was entered. This was confirmed following negative aspiration with injection of approximately 1.5cc of Isovue 200, showing excellent epidural flow without vascular or intrathecal uptake. At this point, 1 cc of 1% lid ocaine solution combined with 2cc or 10mg of dexamethasone and 6mg of betamethasone was injected without incident. The patent tolerated the procedure without signs of symptoms of complications prior to transfer to the recovery area for further monitoring. The patient was then transferred to the recovery area where they were observed for an appropriate period of time after the injection. The patient reported a VAS score of 6 prior to the procedure and a post-procedure VAS of 0. POST OP INSTRUCTIONS The patient was provided a Pain Log to continue to record their response to the target-specific procedure prior to follow-up visit with their referring physician. Additionally, specific post-injection care instructions and a contact number to our office were provided if concerns arise regarding possible complications associated with the procedure are suspected.
== END 2024-08-31 16:15 | disposition home or self-care (01) ==
PROVIDERS: Family Provider Internal Medicine; PCP Internal Medicine; Referring Provider Physical Medicine & Rehabilitation; Visit Provider Physical Medicine & Rehabilitation
DX: M48.062 Spinal stenosis, lumbar region with neurogenic claudication (principal)
CPT/HCPCS: 62323; 99152; J0702; J1100; J2250; J3490

== ENCOUNTER 2024-11-09 12:43 | Outpatient (CLI) | payer MEDICARE, SELFPAY ==
[2024-11-09] VITALS (7 sets, daily range): BP systolic 99–139; BP diastolic 57–75; PULSE 60–91; RESP 14–21; TEMP 37.3; O2SAT 94–100
--- NOTE | 2024-11-09 12:44 | DI.RAD.S_ITS ---
PROCEDURE: PAIN L INTERLAMINAR/CAUDAL INJ INDICATIONS: para Right L5/S1 TL MAJO COMPARISON: [facility], , PAIN L INTERLAMINAR/CAUDAL INJ, 08/31/2024, 15:29. FINDINGS/IMPRESSION: Fluoroscopic spot filming was performed to verify placement of spinal needle at the L5-S1 level, as labeled on the films. Appropriate location of the needle tip was confirmed by injection of iodinated contrast. Approved by: Homer Gonzales M.D. on 11/09/2024 at 21:55
[2024-11-09] MEDS: MIDAZOLAM 2 MG/2 ML VIAL IV (13:57)
[2024-11-09] MEDS: iopamidoL 15 ML VIAL 3 ML INJ (13:59)
[2024-11-09] MEDS: DEXAMETHASONE 10 MG/ML VIAL INJ (13:59)
[2024-11-09] MEDS: BETAMETHASONE 30 MG/5 ML MDV 12 MG INJ (13:59)
[2024-11-09] MEDS: BUPIVACAINE 0.25% (PF) VIAL 2 ML INJ (13:59)
--- NOTE | 2024-11-09 14:09 | P.PCN_ITS ---
Date/Time/Diagnoses Date of procedure: 11/09/24 Time of procedure: 14:09 Pre-procedure diagnosis: 1. HNP WITH RADICULAR FEATURES, 2. MULTILEVEL CENTRAL STENOSIS, Post-procedure diagnosis: same Procedure Notes Procedure: 1. FLUOROSCOPICALLY GUIDED CONTRAST CONTROLLED INTERLAMINAR EPIDURAL STEROID INJECTION - L5/S1 Indications: Corry is referred by Dr. Roman for treatment of Bilateral Foraminal Stenosis L>R LE symptoms. Physician: Nando Deras Total Fluoroscopy time (seconds): 6 Total sedation minutes: 10 Complications: none Procedure in detail & Post-procedure care: FINDINGS Multilevel Central Spinal Stenosis with Nerve Root Compression DESCRIPTION OF PROCEDURE Fluoroscopically guided, contrast-controlled L5/S1 translaminar epidural steroid injection. Following review of allergy and review of potential side effects and complications, including, but not necessarily limited to, infection, allergic reaction, local tissue breakdown, temporary as well as permanent nerve injury, paralysis, stroke and possible , the patient indicated that the patient understood and agreed to proceed. An informed consent document was signed by the patient, witnessed by a nurse, and placed in the patient's chart. Additionally, other treatment options including modalities, medications, and physical therapy were reviewed with the patient. After review of previous anaesthesic history and IV conscious sedation the patient was deemed safe to proceed with today?s procedure with IV conscious sedation as ASA class II designation. Safety time-out was performed to confirm patient ID, procedure to be performed and site of procedure. IV sedation was accomplished with a combination of 2mg of Versed administered by the RN after DO order, titrated to patient comfort during the course of the procedure while the patient remained responsive to all verbal commands. In the prone position, following sterile prep and drape of the lumbar region, the L5/S1 translaminar space was identified fluoroscopically. The skin was anesthetized via a 25-gauge, 1.5-inch needle with 1% lidocaine solution. At this point, a 22-gauge short bevel spinal needle was atraumatically introduced and advanced under fluoroscopic guidance into the region of the L5/S1 translaminar space. Depth was confirmed on lateral view. Radiological data, including multiple fluoroscopic views of the lumbar spine, reveal a spinal needle at the L5/S1 translaminar space. Lateral views then show placement of the needle in the epidural space. Subsequent views show contrast material flowing superiorly and inferiorly in the epidural space. No vascular or intrathecal uptake is observed. At this point, using loss of resistance technique with saline and air, the epidural space was entered. This was confirmed following negative aspiration with injection of approximately 1.5cc of Isovue 200, showing excellent epidural flow without vascular or intrathecal uptake. At this point, 1 cc of 1% lido geoff solution combined with 2cc or 10mg of dexamethasone and 6mg of betamethasone was injected without incident. The patent tolerated the procedure without signs of symptoms of complications prior to transfer to the recovery area for further monitoring. The patient was then transferred to the recovery area where they were observed for an appropriate period of time after the injection. The patient reported a VAS score of 7 prior to the procedure and a post-procedure VAS of 1. POST OP INSTRUCTIONS The patient was provided a Pain Log to continue to record their response to the target-specific procedure prior to follow-up visit with their referring physician. Additionally, specific post-injection care instructions and a contact number to our office were provided if concerns arise regarding possible complications associated with the procedure are suspected.
== END 2024-11-09 14:30 | disposition home or self-care (01) ==
LOC: RAD 12:43
PROVIDERS: Family Provider Internal Medicine; PCP Internal Medicine; Referring Provider Physical Medicine & Rehabilitation; Visit Provider Physical Medicine & Rehabilitation
DX: M51.17 Intervertebral disc disorders with radiculopathy, lumbosacral region (principal); M48.07 Spinal stenosis, lumbosacral region
CPT/HCPCS: 62323; 99152; J0702; J1100; J2250; J3490

== ENCOUNTER 2025-02-01 13:02 | Outpatient (CLI) | payer MEDICARE, SELFPAY ==
[2025-02-01] VITALS (8 sets, daily range): BP systolic 104–150; BP diastolic 58–82; PULSE 60–86; RESP 16–17; TEMP 36.1; O2SAT 95–100
[2025-02-01] MEDS: MIDAZOLAM 2 MG/2 ML VIAL IV (14:05)
[2025-02-01] MEDS: BUPIVACAINE 0.25% (PF) VIAL 2 ML INJ (14:11)
[2025-02-01] MEDS: iopamidoL 15 ML VIAL 3 ML INJ (14:12)
[2025-02-01] MEDS: BETAMETHASONE 30 MG/5 ML MDV 12 MG INJ (14:12)
[2025-02-01] MEDS: DEXAMETHASONE 10 MG/ML VIAL 20 MG INJ (14:13)
[2025-02-01] MEDS: BETAMETHASONE 30 MG/5 ML MDV 6 MG INJ (14:14)
--- NOTE | 2025-02-01 14:31 | P.PCN_ITS ---
Date/Time/Diagnoses Date of procedure: 02/01/25 Time of procedure: 14:31 Pre-procedure diagnosis: 1. HNP WITH RADICULAR FEATURES, 2. MULTILEVEL CENTRAL STENOSIS, Post-procedure diagnosis: same Procedure Notes Procedure: 1. FLUOROSCOPICALLY GUIDED CONTRAST CONTROLLED INTERLAMINAR EPIDURAL STEROID INJECTION - L2/3 Indications: Corry is referred by Dr. Webb for treatment of Bilateral Foraminal Stenosis L>R LE symptoms. Physician: Nando Deras Total Fluoroscopy time (seconds): 19 Total sedation minutes: 21 Complications: none Procedure in detail & Post-procedure care: FINDINGS Multilevel Central Spinal Stenosis with Nerve Root Compression DESCRIPTION OF PROCEDURE Fluoroscopically guided, contrast-controlled L2/3 translaminar epidural steroid injection. Following review of allergy and review of potential side effects and complications, including, but not necessarily limited to, infection, allergic reaction, local tissue breakdown, temporary as well as permanent nerve injury, paralysis, stroke and possible , the patient indicated that the patient understood and agreed to proceed. An informed consent document was signed by the patient, witnessed by a nurse, and placed in the patient's chart. Additionally, other treatment options including modalities, medications, and physical therapy were reviewed with the patient. After review of previous anaesthesic history and IV conscious sedation the patient was deemed safe to proceed with today?s procedure with IV conscious sedation as ASA class II designation. Safety time-out was performed to confirm patient ID, procedure to be performed and site of procedure. IV sedation was accomplished with a combination of 2mg Versed administered by the RN after DO order, titrated to patient comfort during the course of the procedure while the patient remained responsive to all verbal commands. In the prone position, following sterile prep and drape of the lumbar region,the L2/3 translaminar space was identified fluoroscopically. The skin was anesthetized via a 25-gauge, 1.5-inch needle with 1% lidocaine solution. At this point, a 22-gauge short bevel spinal needle was atraumatically introduced a nd advanced under fluoroscopic guidance into the region of the L2/3 translaminar space. Depth was confirmed on lateral view. Radiological data, including multiple fluoroscopic views of the lumbar spine, reveal a spinal needle at the L2/3 translaminar space. Lateral views then show placement of the needle in the epidural space. Subsequent views show contrast material flowing superiorly and inferiorly in the epidural space. No vascular or intrathecal uptake is observed. At this point, using loss of resistance technique with saline and air, the epidural space was entered. This was confirmed following negative aspiration with injection of approximately 1.5 cc of Isovue 200, showing excellent epidural flow without vascular or intrathecal uptake. At this point, 1 cc of 1% lidocaine solution combined with 2cc or 10mg of dexamethasone and 6mg of betamethasone was injected without incident. The patient tolerated the procedure well without signs or symptoms of complications prior to transfer to the recovery area continued monitoring without incident. The patient was then transferred to the recovery area where they were observed for an appropriate period of time after the injection. The patient reported a VAS score of 6 prior to the procedure and a post-procedure VAS of 0. POST OP INSTRUCTIONS The patient was provided a Pain Log to continue to record their response to the target-specific procedure prior to follow-up visit with their referring physician. Additionally, specific post-injection care instructions and a contact number to our office were provided if concerns arise regarding possible complications associated with the procedure are suspected.
--- NOTE | 2025-02-01 14:33 | P.PCN_ITS ---
Date/Time/Diagnoses Date of procedure: 02/01/25 Time of procedure: 14:33 Pre-procedure diagnosis: 1. HNP WITH RADICULAR FEATURES, 2. MULTILEVEL CENTRAL STENOSIS, Post-procedure diagnosis: same Procedure Notes Procedure: 1. FLUOROSCOPICALLY GUIDED CONTRAST CONTROLLED INTERLAMINAR EPIDURAL STEROID INJECTION - L5/S1 Indications: Corry is referred by Dr. Martinez for treatment of Bilateral Foraminal Stenosis L>R LE symptoms. Physician: Nando Deras Total Fluoroscopy time (seconds): 19 Total sedation minutes: 21 Complications: none Procedure in detail & Post-procedure care: FINDINGS Multilevel Central Spinal Stenosis with Nerve Root Compression DESCRIPTION OF PROCEDURE Fluoroscopically guided, contrast-controlled L5/S1 translaminar epidural steroid injection. Following review of allergy and review of potential side effects and complications, including, but not necessarily limited to, infection, allergic reaction, local tissue breakdown, temporary as well as permanent nerve injury, paralysis, stroke and possible , the patient indicated that the patient understood and agreed to proceed. An informed consent document was signed by the patient, witnessed by a nurse, and placed in the patient's chart. Additionally, other treatment options including modalities, medications, and physical therapy were reviewed with the patient. After review of previous anaesthesic history and IV conscious sedation the patient was deemed safe to proceed with today?s procedure with IV conscious sedation as ASA class II designation. Safety time-out was performed to confirm patient ID, procedure to be performed and site of procedure. IV sedation was accomplished with a combination of 2mg of Versed administered by the RN after DO order, titrated to patient comfort during the course of the procedure while the patient remained responsive to all verbal commands. In the prone position, following sterile prep and drape of the lumbar region, the L5/S1 translaminar space was identified fluoroscopically. The skin was anesthetized via a 25-gauge, 1.5-inch needle with 1% lidocaine solution. At this point, a 22-gauge short bevel spinal needle was atraumatically introduced and advanced under fluoroscopic guidance into the region of the L5/S1 translaminar space. Depth was confirmed on lateral view. Radiological data, including multiple fluoroscopic views of the lumbar spine, reveal a spinal needle at the L5/S1 translaminar space. Lateral views then show placement of the needle in the epidural space. Subsequent views show contrast material flowing superiorly and inferiorly in the epidural space. No vascular or intrathecal uptake is observed. At this point, using loss of resistance technique with saline and air, the epidural space was entered. This was confirmed following negative aspiration with injection of approximately 1.5cc of Isovue 200, showing excellent epidural flow without vascular or intrathecal uptake. At this point, 1 cc of 1% li docaine solution combined with 2cc or 10mg of dexamethasone and 6mg of betamethasone was injected without incident. The patent tolerated the procedure without signs of symptoms of complications prior to transfer to the recovery area for further monitoring. The patient was then transferred to the recovery area where they were observed for an appropriate period of time after the injection. The patient reported a VAS score of 6 prior to the procedure and a post-procedure VAS of 0. POST OP INSTRUCTIONS The patient was provided a Pain Log to continue to record their response to the target-specific procedure prior to follow-up visit with their referring physician. Additionally, specific post-injection care instructions and a contact number to our office were provided if concerns arise regarding possible complications associated with the procedure are suspected.
== END 2025-02-01 14:39 | disposition home or self-care (01) ==
PROVIDERS: Family Provider Internal Medicine; PCP Internal Medicine; Referring Provider Internal Medicine; Visit Provider Physical Medicine & Rehabilitation
DX: M51.17 Intervertebral disc disorders with radiculopathy, lumbosacral region; M48.07 Spinal stenosis, lumbosacral region; M51.16 Intervertebral disc disorders with radiculopathy, lumbar region; M48.061 Spinal stenosis, lumbar region without neurogenic claudication
CPT/HCPCS: 62323; 99152; J0702; J1100; J2250; J3490

== ENCOUNTER 2025-08-16 13:14 | Outpatient (CLI) | payer MEDICARE, SELFPAY ==
[2025-08-16] VITALS (7 sets, daily range): BP systolic 116–161; BP diastolic 61–99; PULSE 60–98; RESP 14–20; TEMP 36.7; O2SAT 96–100
[2025-08-16] MEDS: MIDAZOLAM 2 MG/2 ML VIAL IV (14:55)
[2025-08-16] MEDS: LIDOCAINE 2% INJ MDV 20ML 5 ML INJ (14:59)
--- NOTE | 2025-08-16 15:13 | PM.PROC.IR.1 ---
Date/Time/Diagnoses Date of procedure: 08/16/25 Time of procedure: 15:13 Pre-procedure diagnosis: Lumbar Facet Arthropathy Post-procedure diagnosis: same Procedure Notes Procedure: 1. Right L5 and S1 MB BLOCKS SA Indications: Corry is referred by Dr. Martinez for treatment of Right Axial LBP. Physician: Nando Deras Total Fluoroscopy time (seconds): 7 Total sedation minutes: 12 Complications: none Procedure in detail & Post-procedure care: DESCRIPTION OF PROCEDURE Fluoroscopically guided, contrast-controlled right L4, L5 and S1 medial branch blocks with 0.5cc of 2% Lidocaine. Following review of allergy and review of potential side effects and complications, including, but not necessarily limited to, infection, allergic reaction, local tissue breakdown, nerve injury, paralysis, stroke and possible , the patient indicated that the patient understood and agreed to proceed. An informed consent document was signed by the patient, witnessed by a nurse, and placed in the patient's chart. After review of previous anaesthesic history and IV conscious sedation the patient was deemed safe to proceed with today?s procedure with IV conscious sedation as ASA class II designation. Safety time-out was performed to confirm patient ID, procedure to be performed and site of procedure. IV sedation was accomplished with a combination of 2mg of Versed was administered by the RN after DO order, titrated to patient comfort during the course of the procedure while the patient remained responsive to all verbal commands In the prone position, following sterile prep and drape of the lumbar region, the right L4, L5 and S1 anatomical location of the medial branch of the dorsal ramus was identified fluoroscopically. Subsequently an anesthetic skin wheal using 1% lidocaine solution was initiated at each of the anatomical spots. Subsequently then a 22-gauge 3.5-inch spinal needle was atraumatically introduced and advanced under fluoroscopic guidance at each of the corresponding sites at the right L4, L5 and S1 MB. After negative aspiration, 0.2 cc of Isovue 200 was injected, confirming placement without vascular or intrathecal uptake. Subsequently then 0.5 cc of 2% Lidocaine solution was injected at each of the corresponding sites at the right L4, L5 and S1 medial branch locations. The patient tolerated the procedure well without signs or symptoms of complications. The procedure tolerated the procedure well without signs or symptoms of complications prior to transfer to the recovery area continued monitoring without incident. Post-procedure, the patient was monitored initiating provocative activities to measure the amount of relief from block of the facetogenic pain. The patient reported a VAS of 7 prior to the procedure and a post-procedure VAS of 1. It has been a pleasure to assist in the diagnostic and therapeutic care of your patient. POST OP INSTRUCTIONS The patient was provided with a Pain Log to complete over the next several hours and subsequent days prior to the patient's follow up with the ordering physician. If the patient has terrestrial ecologist relief to the solution applied, then they may be a candidate for medial branch rhizotomy. The patient is aware, was provided, once again, with a Pain Log and will follow up with the referring physician for review and clinical correlation.
== END 2025-08-16 15:46 | disposition home or self-care (01) ==
PROVIDERS: Family Provider Internal Medicine; PCP Internal Medicine; Referring Provider Physical Medicine & Rehabilitation; Visit Provider Physical Medicine & Rehabilitation
DX: M47.816 Spondylosis without myelopathy or radiculopathy, lumbar region (principal); M47.817 Spondylosis without myelopathy or radiculopathy, lumbosacral region
CPT/HCPCS: 64493; 64494; 99152; J2250

== ENCOUNTER 2025-10-02 07:13 | Outpatient (CLI) | payer MEDICARE, SELFPAY ==
[2025-10-02] VITALS (10 sets, daily range): BP systolic 92–127; BP diastolic 54–74; PULSE 60–97; RESP 16–20; TEMP 36.8; O2SAT 93–98
[2025-10-02] MEDS: MIDAZOLAM 2 MG/2 ML VIAL IV (08:26)
[2025-10-02] MEDS: LIDOCAINE 1% 20 ML 5 ML INJ (08:31)
--- NOTE | 2025-10-02 08:54 | P.PCN_ITS ---
Date/Time/Diagnoses Date of procedure: 10/02/25 Time of procedure: 08:54 Pre-procedure diagnosis: 1. RECALCITRANT FACET ARTHROPATHY Post-procedure diagnosis: same Procedure Notes Procedure: 1. RIGHT L5 MEDIAL BRANCH RADIOFREQUENCY NEUROTOMY AND RIGHT S1 DORSAL RAMUS BRANCH RADIOFREQUENCY NEUROTOMY Indications: Corry is referred by Dr. Martinez for treatment of facet arthropathy. Physician: Nando Deras Total Fluoroscopy time (seconds): 13 Total sedation minutes: 22 Complications: none Procedure in detail & Post-procedure care: DESCRIPTION OF PROCEDURE Right L5 medial branch radiofrequency neurotomy and right S1 dorsal ramus branch radiofrequency neurotomy under fluoroscopy with conscious sedation. The patient is well known to this clinic having undergone previous facet injections with good but temporary relief. The patient has experienced appropriate, concordant relief with previous facet and median branch blocks but the patient's pain has been recalcitrant to further conservative measures. Therefore, based upon the patient's relief and persistent symptoms, the patient is considered an appropriate candidate for facet rhizotomy. All of the patient's questions regarding the risks versus benefits of the procedure, including, but not limited to, bleeding, infection, temporary as well as lasting nerve injury, paralysis, stroke, and , as well treatment alternatives were answered to satisfaction. After review of previous anaesthesic history and IV conscious sedation the patient was deemed safe to proceed with today?s procedure with IV conscious sedation as ASA class II designation. Safety time-out was performed to confirm patient ID, procedure to be performed and site of procedure. IV sedation was accomplished with a combination of 2mg of Versed was administered by the RN after DO order, titrated to patient comfort during the course of the procedure while the patient remained responsive to all verbal commands. After obtaining informed consent, denial of pertinent drug allergies, as well as being made aware of the potential risks of bleeding, infection, spinal cord trauma, paralysis, temporary and permanent nerve damage, seizure, stroke, and possible , the patient was brought to the fluoroscopy suite and positioned prone on the fluoroscopy table. The lumbar region was prepped with chlorhexadine and covered with a fenestrated drape in the usual sterile fashion. Appropriate monitors applied including pulse oximeter, pulse, and blood pressure for regular monitoring throughout the procedure. After local infiltration using 1% lidocaine, under fluoroscopic guidance, a 10- cm RF insulated needle with a 10-mm active tip was positioned parallel to the junction of the right sacral ala and the superior articulating process where the S1 dorsal ramus resides. Needle placement was confirmed with sensory stimulation at 50 Hz, with motor stimulation of .5v on the right which produced local stimulation without radicular component. The stimulation was then increased to 2v with, once again, only local multifidus stimulation without radicular component. This was then followed by two discreet lesions performed at 80 degrees Celsius for 90 seconds each. The needle was then removed and the identical procedure was performed along the length of the right L5 medial branch with motor stimulation at .7v on the right. The patient tolerated the procedure well without signs or symptoms of complications prior to transfer to the recovery area continued monitoring without incident. The patient was then transferred to the recovery area where they were observed for an appropriate period of time after the injection. The patient was then transferred to the recovery area where they were observed for an appropriate period of time after the injection. The patient reported a VAS score of 8 prior to the procedure and a post- procedure VAS of 0. POST OP INSTRUCTIONS The patient was provided a Pain Log to continue to record the patient's response to the target-specific procedure prior to the patient's follow-up visit with the referring physician. Additionally, specific post-injection care instructions and a contact number to our office were provided if concerns arise regarding possible complications associated with the procedure are suspected.
== END 2025-10-02 09:10 | disposition home or self-care (01) ==
LOC: RAD 07:14
PROVIDERS: Family Provider Internal Medicine; PCP Internal Medicine; Referring Provider Internal Medicine; Visit Provider Physical Medicine & Rehabilitation
DX: M47.816 Spondylosis without myelopathy or radiculopathy, lumbar region (principal); M47.817 Spondylosis without myelopathy or radiculopathy, lumbosacral region
CPT/HCPCS: 64635; 99152; J2250